=== PATIENT | male | born 1965 | race Caucasian/White ===

== ENCOUNTER 2017-07-14 21:14 | Inpatient (IN) ==
[2017-07-14] MEDS ORDERED: ONDANSETRON 4 MG/2 ML VIAL IV STA (21:39)
[2017-07-14] MEDS ORDERED: MORPHINE 2 MG/1 ML SYRINGE IV STA (21:39)
[2017-07-14] MEDS ORDERED: SODIUM CHLORIDE 0.9% 1,000 ML IV STA (21:43)
[2017-07-14] MEDS ORDERED: ONDANSETRON 4 MG/2 ML VIAL ONE (22:07)
[2017-07-14] MEDS ORDERED: MORPHINE 2 MG/1 ML SYRINGE ONE ×2 (22:07→22:08)
[2017-07-14 22:10] LABS: Basophils % 0.6 % (0.0-0.8); Eosinophils # 0.2 10*3/uL (0.0-0.87); Eosinophils % 2.5 % (0.00-10.9); Hematocrit 38.3 VOL% (42.0-52.0); Hemoglobin 13.2 GM/DL (14.0-18.0); Immature Granulocytes % 0.3 %; Immature Granulocytes Absolute 0.02 #; Lymphocytes # 1.9 10*3/uL (1.4-4.0); Lymphocytes % 28.7 % (21.2-54.2); Mean Corpuscular HGB Conc 34.5 GM/DL (32-36); Mean Corpuscular Hemoglobin 29 PG (27-34); Mean Corpuscular Volume 84.5 FL (87-102); Mean Platelet Volume 9.5 FL (9.6-12.0); Monocytes # 0.6 10*3/uL (0.11-0.8); Monocytes % 8.6 % (1.7-12.7); Neutrophils # 3.9 10*3/uL (1.4-7.4); Neutrophils % 59.3 % (38.7-73.9); Platelet Count 187 T/CUMM (130-400); Red Blood Count 4.53 MC/CUMM (3.8-5.5); Red Cell Distribution Width 13.3 % (9.3-17.3); White Blood Count 6.5 T/CUMM (4-12)
[2017-07-14 22:22] LABS: Albumin 3.6 G/DL (3.4-5.0); Bilirubin,Total 0.7 MG/DL (0.2-1.0); Calcium 8.7 MG/DL (8.5-10.1); Potassium 3.7 MMOL/L (3.5-5.1); Total Protein 6.4 G/DL (6.4-8.3)
[2017-07-14] MEDS ORDERED: HYDROmorphone 2 MG/1 ML VIAL IV STA (22:38)
[2017-07-14] MEDS ORDERED: HYDROmorphone 2 MG/1 ML VIAL ONE (22:40)
--- NOTE | 2017-07-14 22:41 | Emergency Department Note ---
Arrival - Arrival Chief Complaint: Chest Pain Stated Complaint: chest pain ED Nursing Triage Note: pt states pain is centered in his chest. pt experienced n/v, sharp stabbing pain, with no complaint of sob. pt is observed in bed cluthing lower right abdomen upon movement. Mode of Arrival: Stretcher Time Seen by Provider: 07/14/17 21:30 - History of Present Illness HPI Narrative: This is a 52-year-old white male who has no other medical problems and takes no medications who is known to have gallstones which she has been reluctant to have surgery for who has intermittent episodes of biliary colic but presents now with 4 days of increasingly worsening constant right upper quadrant pain associated with fever but no chills which is preventing him from sleeping. He presents to the emergency department asking for pain management and asking to be admitted to the hospital for cholecystectomy. His laboratory tests showed normal liver function studies normal white blood cell count a low-grade fever of 99.1 and an amylase of over 400. Allergies/Adverse Reactions: Allergies Allergy/AdvReac Type Severity Reaction Status Date / Time No Known Allergies Allergy Unverified 09/12/16 03:57 Home Medications: Home Medications Medication Instructions Recorded Confirmed Type Aspirin EC Tab 81 mg PO DAILY #30 tablet 03/23/16 Rx Carvedilol [Coreg] 6.25 mg PO BID #60 tablet 03/23/16 Rx HYDROcodone/ACETAMIN 10-325 [[place] 1 tablet PO Q4H PRN #30 tablet 03/23/16 Rx 10-325] Losartan [Cozaar] 50 mg PO DAILY #30 tablet 03/23/16 Rx HYDROcodone/ACETAMIN 10-325 [[place] 1 tablet PO Q4H PRN #20 tablet 09/12/16 Rx 10-325] Ondansetron [Ondansetron Odt] 8 mg PO Q4H PRN #10 tab.rapdis 09/12/16 Rx Tamsulosin [Flomax] 0.4 mg PO DAILY #20 capsule 09/12/16 Rx Review of System - Review of System Constitutional: Absent: fever, night sweats Eyes: Absent: redness, vision change Head/Ears/Nose/Throat: Absent: epistaxis, nasal drainage Respiratory: Absent: respiratory distress, wheezing Cardiovascular: Absent: dyspnea on exertion, orthopnea Gastrointestinal: Present: abdominal pain, nausea, hematemesis. Absent: vomiting, diarrhea Genitourinary male: Absent: hematuria, discharge Musculoskeletal: Absent: joint swelling, lower back pain, leg pain Skin: Absent: change in color, pruritus Neurological: Absent: numbness, paresthesias Psychiatric: Absent: anxiety, suicidal thoughts, homicidal thoughts Endocrine: Absent: polydipsia, polyuria Hematological/Lymphatic: Absent: easy bruising, lymphadenopathy Allergic/Immunologic: Absent: urticaria, itchy eyes Medical,Surgical,& Family Hx - Medical History Cardio: History of: Hypertension ("borderline" NO MEDS) Neurology: History of: Vertigo Genitourinary: History of: Kidney Stones - Surgical History Abdominal Surgeries: Patient denies: Abdominal Surgery Orthopedic Surgeries: Surgical HX of;: Orthopedic Surgery (L leg with radha, surgical wires in jaws) - Family History Family History: Reports;: Family Heart Disease (father), Family Hypertension, Family Stroke (mother) - Social History Smoking Status: Never smoker Frequency of Alcohol Use: None Type of Drug Use: None Exam Vital Signs: Vital Signs Temperature 99.1 F 07/14/17 21:22 Pulse Rate 50 L 07/14/17 21:22 Respiratory Rate 17 07/14/17 22:16 Blood Pressure 113/70 07/14/17 21:22 O2 Sat by Pulse Oximetry 99 07/14/17 21:22 - General Exam limited due to: ALOC - Head Head exam: Present: atraumatic, normocephalic - Eye Eye exam: Present: PERRL, EOMI - ENT ENT exam: Present: normal exam, normal oropharynx - Neck Neck exam: Present: normal inspection, full ROM - Chest Chest inspection: Present: normal inspection, symmetric chest wall rise - Respiratory Respiratory exam: Present: normal lung sounds bilaterally - Cardiovascular Cardiovascular exam: Present: regular rate, normal rhythm - Abdominal Exam Abdominal exam: Present: other (Tenderness in the right upper quadrant without guarding or rebound) - Extremities Exam Extremities exam: Present: normal inspection, full ROM - Back Exam Back exam: Present: normal inspection, full ROM - Neurological Exam Neurological exam: Present: alert, oriented X3 - Psychiatric Psychiatric exam: Present: normal affect, normal mood - Skin Skin exam: Present: warm, dry Course Course Narrative: The patient's white blood cell count is not elevated. He has a low-grade fever and an elevated lipase. The gallbladder ultrasound does not show pericolic fluid gallbladder wall thickening but there is a positive Ruiz sign. The case was discussed with Dr. Gamino who agreed to admit the patient for pain management and possible cholecystectomy therefore we will admit the patient to the hospital. Results - Labs CBC & BMP: 07/14/17 21:42 07/14/17 21:42 Disposition Clinical Impression: Biliary colic Disposition: Still a Patient Additional Instructions: The patient's white blood cell count is not elevated. He has a low-grade fever and an elevated lipase. The gallbladder ultrasound does not show pericolic fluid gallbladder wall thickening but there is a positive Ruiz sign. The case was discussed with Dr. Gamino who agreed to admit the patient for pain management and possible cholecystectomy therefore we will admit the patient to the hospital.
[2017-07-15] MEDS ORDERED: HYDROmorphone 2 MG/1 ML VIAL IV STA (01:51)
[2017-07-15] MEDS ORDERED: HYDROmorphone 2 MG/1 ML VIAL ONE ×2 (02:02→09:32)
--- NOTE | 2017-07-15 02:32 | EKG Report ---
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
[2017-07-15] MEDS ORDERED: ONDANSETRON 4 MG/2 ML VIAL ONE (04:36)
[2017-07-15] MEDS: ONDANSETRON 4 MG/2 ML VIAL IV PRN ×2 (04:50→14:19)
[2017-07-15] MEDS: HYDROmorphone 2 MG/1 ML VIAL IV PRN ×4 (04:50→19:06)
[2017-07-15] MEDS ORDERED: PIPERACILLIN/TAZOBACTAM 3,375 MG VIAL IV ONE (06:21)
[2017-07-15] MEDS ORDERED: SODIUM CHLORIDE 0.9% 100 ML IV ONE (06:21)
--- NOTE | 2017-07-15 06:26 | Ultrasound Report ---
Exam: US gallbladder Date: 07/14/2017 9:43 PM Comparison: None Indication: Right upper quadrant pain Technique:[Multiple transabdominal real-time scans were obtained of the right upper quadrant. Color-flow scans obtained. Ultrasound images were captured and stored. This exam was initially interpreted by [facility].] Findings: Multiple hyperechoic foci in the gallbladder with posterior acoustical shadowing. The wall of the gallbladder is somewhat ill-defined because of the significant shadowing. Reported positive sonographic Ruiz sign. CBD is normal in size measuring 5 mm. The liver is normal in size with no masses. Right kidney measures 104 mm in length with no hydronephrosis. 3 mm midpole and 14 mm lower pole simple appearing renal cysts. The visualized pancreas and aorta have an unremarkable appearance with color flow documented in the portal and hepatic veins. Portions of the pancreas and aortic bifurcation are obscured by bowel gas. Impression: Cholelithiasis with poor definition of the wall of the gallbladder because of the significant shadowing from the multiple stones. Reported positive sonographic Ruiz sign. Biliary scan with ejection fraction may be helpful for further evaluation. Simple appearing right renal cysts. PROCEDURE INTERPRETED AT [facility] DEPARTMENT OF RADIOLOGY Final Report Signed by: Dr. Dina Trejo
[2017-07-15] MEDS: PIPERACILLIN/TAZOBACTAM 3,375 MG in SODIUM CHLORIDE 0.9% 100 ML IV SCH ×3 (06:32→22:03)
--- NOTE | 2017-07-15 07:01 | XRay Report ---
Portable chest Date: 07/14/2017 Clinical history: Chest pain Comparison: 03/22/2016 Technique: Portable AP sitting chest Findings: The heart is minimally enlarged with calcified granulomata/nodes and minimal chronic scarring. Stable mediastinum with degenerative changes. Impression: No acute cardiopulmonary pathology identified. PROCEDURE INTERPRETED AT [facility] DEPARTMENT OF RADIOLOGY Final Report Signed by: Dr. Dina Trejo
--- NOTE | 2017-07-15 09:05 | Cardiology Consult Note ---
Assessment and Plan - Time spent with patient Time spent with patient: Greater than 30 minutes (1) Cholecystitis Status: Acute Assessment and plan: SEE PLAN OF CARE LISTED BELOW Current Visit: Yes (2) Pre-operative cardiovascular examination Status: Acute Assessment and plan: SEE PLAN OF CARE LISTED BELOW Current Visit: Yes (3) Sinus bradycardia Status: Acute Assessment and plan: SEE PLAN OF CARE LISTED BELOW Current Visit: Yes (4) Fatigue Status: Acute Assessment and plan: SEE PLAN OF CARE LISTED BELOW Current Visit: Yes (5) Abdominal pain Status: Acute Assessment and plan: SEE PLAN OF CARE LISTED BELOW Current Visit: Yes (6) Hypertension Status: Chronic Assessment and plan: SEE PLAN OF CARE LISTED BELOW Current Visit: No (7) Sleep apnea Status: Chronic Assessment and plan: SEE PLAN OF CARE LISTED BELOW Current Visit: No History of Present Illness - Data of Consult Patient: new to practice Consult date: 07/15/17 Requesting Physician: Bowen Gamino - Consult Narrative Reason for consult: pre-operative evaluation, sinus bradycardia History of present illness: RATING CLERK: (NEW) DR. REGALADO Patient is being seen in the emergency department. Mr. Livingston, 52WM, with no prior history of cardiac disease but risk factors significant for: hypertension. Presented to the ED of [facility] the evening July 14, 2017 with complaints of chest pain, nausea and vomiting. He was found to have cholecystitis and is being considered for cholecystectomy today. EKG was performed which revealed a sinus bradycardia, heart rates varying from high 30s to low 50s. Of note, home medications listed include Carvedilol however, this was discontinued sometime ago and he has been taking Amlodipine instead. Cardiology was consulted for preoperative evaluation. Patient is normally active without complaints of chest pain, heaviness, tightness or shortness of breath. He has been extremely fatigued over the past 3 months. His is present and reports that he has lost approximately 30 pounds in the past 3 months as well. He does find it difficult to eat without having extreme pain which may be contributing to his weight loss. At this time, Dr. Regalado is seen, evaluated and discussed the patient with Dr. Gamino. Patient remains at a low risk for perioperative complications during cholecystectomy. Given the patient's significant pain, these risks are not prohibitive. Obviously, avoid louann blocking agents during procedure and thereafter. We will continue to watch patient's heart rate and rhythm. This is a sinus bradycardia and not a heart block. Given the patient's significant history of fatigue, he may actually benefit from further workup and/or consideration for pacemaker. Will add free T4 and TSH this morning. Will follow along closely. ASSESSMENT/PLAN: 1. SINUS BRADYCARDIA -this does appear to be a sinus bradycardia and not a heart block. However, he has complaints of worsening fatigue over the past several months which may further define this is symptomatic bradycardia. Will continue to follow along and make additional recommendations accordingly. Avoiding louann blocking agents. 2. PRE-OPERATIVE RISK EVALUATION - low risk for perioperative complications during cholecystectomy 3. CHOLECYSTITIS - being treated by Dr. Gamino 4. HYPERTENSION - adequately controlled 5. FATIGUE - thyroid studies pending, echo pending. May be related to sinus bradycardia . CC: Bowen Gamino MD - Home Medications and Allergies Home Medications: Home Medications Medication Instructions Recorded Confirmed Type Aspirin EC Tab 81 mg PO DAILY #30 tablet 03/23/16 Rx Carvedilol [Coreg] 6.25 mg PO BID #60 tablet 03/23/16 Rx HYDROcodone/ACETAMIN 10-325 [[place] 1 tablet PO Q4H PRN #30 tablet 03/23/16 Rx 10-325] Losartan [Cozaar] 50 mg PO DAILY #30 tablet 03/23/16 Rx HYDROcodone/ACETAMIN 10-325 [[place] 1 tablet PO Q4H PRN #20 tablet 09/12/16 Rx 10-325] Ondansetron [Ondansetron Odt] 8 mg PO Q4H PRN #10 tab.rapdis 09/12/16 Rx Tamsulosin [Flomax] 0.4 mg PO DAILY #20 capsule 09/12/16 Rx Allergies/Adverse Reactions: Allergies Allergy/AdvReac Type Severity Reaction Status Date / Time No Known Allergies Allergy Unverified 09/12/16 03:57 Review of systems: REVIEW OF SYSTEMS: - Constitutional Constitutional: Present: Fatigue. Absent: syncope, anorexia, night sweats - EENT Eyes: Absent: blurry vision, loss of vision, diplopia Ears: Absent: decreased hearing, ear pain, ear discharge - Cardiovascular Cardiovascular: Present: chest pain after eating. Denies dyspnea on exertion, edema, palpitations. Absent: chest pain with deep breath, claudication, - Respiratory Respiratory: Denies: TYSON, cough. Absent: wheezing, hemoptysis, change in phlegm color - Gastrointestinal Gastrointestinal: Denies: constipation. Right upper quadrant abdominal pain, nausea. Denies hematemesis, hematochezia, melena, change in bowel habits - Genitourinary Genitourinary: Absent: difficulty urinating, dysuria, urinary hesitancy, flank pain - Musculoskeletal Musculoskeletal: Present: back pain Absent: joint swelling, muscle cramps, muscle weakness - Neurological Neurological: Present: normal gait without frequent falls. Absent: dizziness, hemiparesis - Psychiatric Psychiatric: Absent: anxiety, depression, difficulty concentrating - Endocrine Endocrine: Present: fatigue. Absent: cold intolerance, heat intolerance, polyuria, polyphagia, polydipsia - Hematologic/Lymphatic Hematologic/Lymphatic: Present: easy bruising. Absent: easy bleeding -Integumentary Integumentary: Absent: lesions, rashes, skin breakdown Medical,Surgical,& Family Hx - Medical History Cardio: History of: Hypertension ("borderline" NO MEDS) No history of: Cardiac Dysrhythmia, Congenital Heart Disease, CAD Neurology: History of: Vertigo Genitourinary: History of: Kidney Stones - Surgical History Abdominal Surgeries: Patient denies: Abdominal Surgery Orthopedic Surgeries: Surgical HX of;: Orthopedic Surgery (L leg with radha, surgical wires in jaws) - Family History Family History: Reports;: Family Heart Disease (father), Family Hypertension, Family Stroke (mother) - Social History Smoking Status: Never smoker Have you smoked in the last 12 months: No Frequency of Alcohol Use: None Type of Drug Use: None Marital Status: Lives With:: Spouse Functional capacity: independent ambulation Physical Examination Vital Signs Temp Pulse Resp BP Pulse Ox 99.1 F 50 L 17 113/70 99 07/14/17 21:22 07/14/17 21:22 07/14/17 21:22 07/14/17 21:22 07/14/17 21:22 Exam: General: [Appears well with no apparent distress.] [Pleasant and cooperative. ] [Appears comfortable.] HEENT: [PERRL, normocephalic, atraumatic. Mucous membranes moist. No jaundice noted. Conjunctiva moist and clear, sclerae anicteric] Neck: No JVD/HJR, no thyromegaly or lymphadenopathy noted. No carotid bruit appreciated Cardiac: [Slow rate and rhythm, no murmur rub or gallop is appreciated. Lungs: [Clear to auscultation without accessory muscle use to assist the respiratory pattern.] Not requiring oxygen Abdomen: Soft, bowel sounds normoactive. Tenderness to touch right upper quadrant of the abdomen. No abdominal bruit or thrill noted. No masses noted. Musculoskeletal: No fluid collection. Decreased range of motion is noted. Extremities: No clubbing, cyanosis noted. [ No edema noted.] Upper extremity pulses 2+. Lower extremity pulses 2+. Capillary refill less than 3 seconds. Skin: No unusual lesions or rashes. No skin breakdown appreciated. Neuro: Awake, alert and oriented 3. Moves all extremities well without hemiparesis or paralysis. No essential tremor is appreciated. Result/EKG - Labs CBC & BMP: 07/14/17 21:42 07/14/17 21:42 Lab Results: I have reviewed the past 24 hour labs Labs: Laboratory Results - last 24 hr 07/14/17 07/14/17 07/14/17 21:42 21:42 21:42 WBC 6.5 RBC 4.53 Hgb 13.2 L Hct 38.3 L MCV 84.5 L MCH 29 MCHC 34.5 RDW 13.3 Plt Count 187 MPV 9.5 L Neut % (Auto) 59.3 Lymph % (Auto) 28.7 [place] % (Auto) 8.6 Eos % (Auto) 2.5 Baso % (Auto) 0.6 Neut # (Auto) 3.9 Lymph # (Auto) 1.9 [place] # (Auto) 0.6 Eos # (Auto) 0.2 Baso # (Auto) 0.0 Immature Gran % 0.3 Nucleated RBC % 0.0 Immature Gran # 0.02 Nucleated RBCs # 0.00 Immature Plt Fraction 0.0 Sodium 143 Potassium 3.7 Chloride 114 H Carbon Dioxide 24 Anion Gap 8.7 BUN 17 Creatinine 0.90 GFR Calculation 116 BUN/Creatinine Ratio 18.00 Glucose 92 Calculated Osmolality 286.0 Calcium 8.7 Magnesium Total Bilirubin 0.70 AST 13 ALT 17 Alkaline Phosphatase 66 Troponin I < 0.015 Total Protein 6.4 Albumin 3.6 Globulin 2.8 Albumin/Globulin Ratio 1.2 Lipase 439.0 H 07/14/17 07/14/17 23:35 23:35 WBC RBC Hgb Hct MCV MCH MCHC RDW Plt Count MPV Neut % (Auto) Lymph % (Auto) [place] % (Auto) Eos % (Auto) Baso % (Auto) Neut # (Auto) Lymph # (Auto) [place] # (Auto) Eos # (Auto) Baso # (Auto) Immature Gran % Nucleated RBC % Immature Gran # Nucleated RBCs # Immature Plt Fraction Sodium Potassium Chloride Carbon Dioxide Anion Gap BUN Creatinine GFR Calculation BUN/Creatinine Ratio Glucose Calculated Osmolality Calcium Magnesium 2.2 Total Bilirubin AST ALT Alkaline Phosphatase Troponin I < 0.015 Total Protein Albumin Globulin Albumin/Globulin Ratio Lipase - Diagnostic Findings Procedure: Chest x-ray: report reviewed by me - EKG EKG results: interpreted by me EKG shows: bradycardia Quality Measures - VTE Contraindication to Pharmacological VTE Prophylaxis: High Risk of Bleeding
[2017-07-15] MEDS ORDERED: PANTOPRAZOLE 40 MG TABLET PO ONE (09:13)
[2017-07-15] MEDS: PANTOPRAZOLE 40 MG TABLET PO SCH (09:35)
[2017-07-15 10:11] LABS: Free T4 (Free Thyroxine) 1.25 NG/DL (0.76-1.46); Thyroid Stimulating Hormone 5.95 uIU/ml (0.358-3.74)
--- NOTE | 2017-07-15 11:03 | General Surg History&Physical ---
Assessment and Plan (1) Biliary colic Status: Acute Assessment and plan: The patient has worsening right upper quadrant abdominal pain associated with known biliary colic and cholelithiasis. We have obtained cardiology consultation for bradycardia and there are no contraindications to proceeding with surgical intervention today. The risks of the procedure were reviewed with patient including but not limited to infection, bleeding, injury to adjacent structures, the need to convert to open procedure, postoperative pain, adhesions, obstruction, need for additional procedures, wound healing complications, and comp occasions associated with anesthesia including heart attack, stroke, reactions to medications, thorax, and other unforeseeable cardiac, pulmonary and/or neurologic events. Patient and his is present expressed understanding of these risks and agree to proceed with surgical intervention today. We appreciate cardiology assistance. Current Visit: Yes History of Present Illness Chief complaint: RUQ abdominal pain History of present illness: Mr. Livingston is a 52 year old male with known cholelithiasis and history of intermittent biliary colic with pain worsening over the past 3-4 days in the right upper quadrant. Patient has been reluctant to proceed with surgical intervention in the past but states his pain is worsened and he is ready to proceed. Patient has history of hypertension currently on beta-alejandro was noted to be bradycardic in the emergency department. Cardiology consultation was requested prior to proceeding with surgery. Home Medications Medication Instructions Recorded Confirmed Type Aspirin EC Tab 81 mg PO DAILY #30 tablet 03/23/16 Rx Carvedilol [Coreg] 6.25 mg PO BID #60 tablet 03/23/16 Rx HYDROcodone/ACETAMIN 10-325 [[place] 1 tablet PO Q4H PRN #30 tablet 03/23/16 Rx 10-325] Losartan [Cozaar] 50 mg PO DAILY #30 tablet 03/23/16 Rx HYDROcodone/ACETAMIN 10-325 [[place] 1 tablet PO Q4H PRN #20 tablet 09/12/16 Rx 10-325] Ondansetron [Ondansetron Odt] 8 mg PO Q4H PRN #10 tab.rapdis 09/12/16 Rx Tamsulosin [Flomax] 0.4 mg PO DAILY #20 capsule 09/12/16 Rx Allergies Allergy/AdvReac Type Severity Reaction Status Date / Time No Known Allergies Allergy Unverified 09/12/16 03:57 Medical,Surgical,& Family Hx - Medical History Cardio: History of: Hypertension ("borderline" NO MEDS) No history of: Cardiac Dysrhythmia, Congenital Heart Disease, CAD Neurology: History of: Vertigo Genitourinary: History of: Kidney Stones - Surgical History Abdominal Surgeries: Patient denies: Abdominal Surgery Orthopedic Surgeries: Surgical HX of;: Orthopedic Surgery (L leg with radha, surgical wires in jaws) - Family History Family History: Reports;: Family Heart Disease (father), Family Hypertension, Family Stroke (mother) - Social History Smoking Status: Never smoker Frequency of Alcohol Use: None Type of Drug Use: None Exam - Constitutional Vitals: Period Temp Pulse Resp BP Sys/De Dios Pulse Ox Last 24 Hr 97.7 F-99.1 F 42-50 14-17 113-121/70-79 97-100 General appearance: no acute distress - Eye Eye exam: Absent: scleral icterus - Respiratory Respiratory exam: Present: clear to auscultation bilaterally - Cardiovascular Cardiovascular exam: Present: bradycardia - GI/Abdominal GI/Abdominal exam: Present: normal bowel sounds, Ruiz's sign, tenderness ( Right upper quadrant), soft. Absent: distended, firm - Extremities Exam Extremities exam: Absent: calf tenderness, edema - Neurological Exam Neurological exam: Present: alert, oriented X3 Speech: Present: normal - Skin Skin exam: Present: normal color - Constitutional Constitutional: Absent: chills, fever(s) - Cardiovascular Cardiovascular: Absent: chest pain at rest, chest pain with activity, dyspnea, dyspnea on exertion, orthopnea, palpitations - Respiratory Respiratory: Absent: cough, wheezing - Gastrointestinal Gastrointestinal: Present: as per HPI. Absent: hematemesis, hematochezia, melena - Genitourinary Genitourinary: Absent: dysuria, hematuria Hematologic/Lymphatic: Absent: easy bleeding, easy bruising Quality Measures - VTE Contraindication to Pharmacological VTE Prophylaxis: High Risk of Bleeding Results - Labs CBC & BMP: 07/14/17 21:42 07/14/17 21:42 Labs: Bilirubin 0.7, AST 13, ALT 17, alkaline phosphatase 66; lipase 439 - Diagnostic Findings Procedure: Ultrasound: report reviewed by me (Cholelithiasis noted; no evidence of gallbladder distention)
[2017-07-15] MEDS ORDERED: FAMOTIDINE 20 MG TABLET PO ONE (12:06)
[2017-07-15] MEDS ORDERED: LORazepam 1 MG TABLET PO ONE (12:06)
--- NOTE | 2017-07-15 18:31 | ECHO Report ---
Freddy Livingston Exam Date: 07/15/2017 12:25 Referring Physician: Technologist: Mayelin Shukla LRCASPER Age: 52 Ht (in): 70 Wt (lb): 190 Gender: M Exam Location: [facility] Echo Indications: cholecystitis, pre op clearance, ramu, fatique, abd. pain, HTN, GREGOR, biliary colic BP: 121 / 79 HR: 38 Rhythm: bradycardia Technical Quality: IMPRESSIONS Left ventricular ejection fraction is estimated at 55-60 %. Trace mitral valve regurgitation. Trace tricuspid valve regurgitation. Trace aortic valve regurgitation. MEASUREMENTS (Male / Female) Normal Values 2D ECHO LV Diastolic Diameter PLAX 4.4 cm 4.2 - 5.9 / 3.9 - 5.3 cm LV Systolic Diameter PLAX 2.7 cm LV Fractional Shortening PLAX 39.0 % IVS Diastolic Thickness 1.1 cm 0.6 - 1.0 / 0.6 - 0.9 cm LVPW Diastolic Thickness 1.1 cm 0.6 - 1.0 / 0.6 - 0.9 cm Aortic Root Diameter 2.9 cm LA Systolic Diameter LX 4.3 cm 3.0 - 4.0 / 2.7 - 3.8 cm DOPPLER TR Peak Velocity 229.0 cm/s TR Peak Gradient 21.0 mmHg FINDINGS Left Ventricle Normal left ventricular cavity size. Left ventricular ejection fraction is estimated at 55-60 %. Right Ventricle Normal right ventricular size and systolic function. Right Atrium Normal right atrial size. Left Atrium Normal left atrial size. Mitral Valve Morphologically normal mitral valve. Trace mitral valve regurgitation. Aortic Valve The aortic valve is trileaflet and has normal motion. Trace aortic valve regurgitation. Tricuspid Valve Morphologically normal tricuspid valve. Trace tricuspid valve regurgitation. Tricuspid regurgitation velocities suggest a PAP of 21.0 mmHg + RAP. Pulmonic Valve Morphologically normal pulmonic valve. Trace pulmonary valve regurgitation. Pericardium No pericardial effusion. Aorta Normal size aortic root and proximal ascending aorta. Rogelio Regalado (Electronically Signed) Final Date: 15 July 2017 18:03
[2017-07-16] MEDS: PIPERACILLIN/TAZOBACTAM 3,375 MG in SODIUM CHLORIDE 0.9% 100 ML IV SCH (05:54)
[2017-07-16 06:02] LABS: Basophils % 0.5 % (0.0-0.8); Eosinophils # 0.2 10*3/uL (0.0-0.87); Eosinophils % 2.8 % (0.00-10.9); Hematocrit 38.5 VOL% (42.0-52.0); Hemoglobin 13.4 GM/DL (14.0-18.0); Immature Granulocytes % 0.4 %; Immature Granulocytes Absolute 0.02 #; Lymphocytes # 1.3 10*3/uL (1.4-4.0); Lymphocytes % 23.2 % (21.2-54.2); Mean Corpuscular HGB Conc 34.8 GM/DL (32-36); Mean Corpuscular Hemoglobin 30 PG (27-34); Mean Corpuscular Volume 84.6 FL (87-102); Mean Platelet Volume 9.8 FL (9.6-12.0); Monocytes # 0.5 10*3/uL (0.11-0.8); Monocytes % 8.2 % (1.7-12.7); Neutrophils # 3.7 10*3/uL (1.4-7.4); Neutrophils % 64.9 % (38.7-73.9); Platelet Count 160 T/CUMM (130-400); Red Blood Count 4.55 MC/CUMM (3.8-5.5); Red Cell Distribution Width 13.6 % (9.3-17.3); White Blood Count 5.7 T/CUMM (4-12)
[2017-07-16 06:27] LABS: Calcium 8.5 MG/DL (8.5-10.1); Magnesium 2.4 MG/DL (1.8-2.4)
[2017-07-16 06:32] LABS: Risk Ratio 2.83
[2017-07-16] MEDS ORDERED: LORazepam 1 MG TABLET ONE (06:35)
[2017-07-16] MEDS ORDERED: FAMOTIDINE 20 MG TABLET ONE (06:36)
[2017-07-16] MEDS ORDERED: LIDOCAINE 1%/EPI INJ 20 ML VIAL ONE (06:36)
[2017-07-16] MEDS ORDERED: TISSUE ADHESIVE 1 EACH APPLICATOR TOP ONE (06:36)
--- NOTE | 2017-07-16 08:16 | Operative Note ---
Date of procedure: 07/16/17 Pre-op diagnosis: Acute cholecystitis Post-op diagnosis: same Procedure: Preoperative diagnosis Acute cholecystitis Postoperative diagnosis Same Procedures performed Laparoscopic cholecystectomy Findings Acute and chronic cholecystitis was seen. The critical view of safety was obtained prior to placing clips on the cystic duct and cystic artery. Complications None apparent Specimen Gallbladder Anesthesia GETA Blood loss 5 mL Indications Acute cholecystitis. The risks, benefits, and alternatives of the operation were discussed with the patient in detail, and the expected outcomes were reviewed. In particular, the risk of bowel injury, liver injury, bile duct leak and bile duct injury, as well as pancreatitis and retained or drop stones were discussed in detail. All the patient's questions were answered. She like to proceed with the operation. Description of procedure The patient was taken to the operating room and transferred to the operating table in the supine position. Pressure points were padded and SCDs were placed to bilateral lower extremities. General endotracheal anesthesia was administered. The abdomen was prepped chlorhexidine and draped sterilely. Preoperative antibiotics were administered, a timeout was performed. The abdomen was entered in a supraumbilical location of the Veress needle. The skin incision was made in the supraumbilical location with a 11 blade scalpel after local anesthetic was administered. Umbilical stalk was grasped with a penetrating towel clip. A Veress needle was used to enter the peritoneal cavity confirmed by double click technique. Aspiration was negative. Saline drop test confirmed intraperitoneal location. The abdomen was insufflated to 15 mmHg with an initial insufflation pressure of 5 mmHg. The Veress needle was removed and a 5 mm trocar was placed blindly. The towel clip was removed. Diagnostic laparoscopy was performed. There is no evidence of Veress needle or trocar injury. The patient was placed in reverse Trendelenburg and left side rolled down position. Under direct visualization, and after local anesthetic was administered, an 11 mm midepigastric trocar and 2 right subcostal 5 mm trochars were placed. The gallbladder was grasped at the fundus and infundibulum. The cystic plate peritoneum was dissected into the critical view of safety was obtained. The cystic duct and cystic artery were clipped twice initially and once laterally and divided laparoscopically with scissors between clips. Gallbladder was removed from the gallbladder fossa using hook electrocautery. The gallbladder was placed in a Endo Catch retrieval bag through the 11 mm trocar and removed through the trocar with a small amount of fascial extension. The gallbladder fossa was suction irrigated until the effluent was clear. The CO2 was released from the abdomen and the trochars were removed. The fascia was closed at the midepigastric trocar site with a [id number] 0 Vicryl suture. The skin incisions were closed with 4-0 Monocryl subcuticular suture and sterile skin glue. The patient was awakened from anesthesia and transferred to recovery. Postoperative plan Advance diet as tolerated Pain control Anesthesia: FAROOQA, local Surgeon / Physician: Bowen Gamino Estimated blood loss: minimal Specimens: other (gallbladder) Condition: stable Disposition: PACU Results - Labs CBC & BMP: 07/16/17 05:24 07/16/17 05:24 Discharge Plan - Discharge Data Disposition: Disch To Home/Self Care Condition at Discharge: Stable Discharge Diet: advance to your usual diet Activity: no lifting Hygiene: may shower Weight Bearing at Discharge: weight bear as tolerated Driving: other (Do not drive or operate heavy machinery for at least 24 hours and after you are off of narcotic pain medications.) Contact your physician if you experience:: fever over 101, Difficulty voiding, Redness or swelling, Nausea/Vomiting, Shortness of breath, Bleeding, pain uncontrolled by pain medications Wound / Dressing Care Instructions: It is okay to shower. Do not scrub the incision aggressively or submerge it under water. - Discharge Medications New HYDROcodone/ACETAMIN 7.5-325 [[place] 7.5-325] 1 tablet PO Q4H #20 tablet Continue Olmesartan/Hydrochlorothiazide [Benicar Hct 20-12.5 mg Tablet] 1 tablet PO DAILY Amlodipine Besylate 10 mg PO DAILY - Follow Up or Referral Follow Up: Bowen Gamino MD [Physician] - 2 Weeks - Forms/Instructions
--- NOTE | 2017-07-16 08:19 | EKG Report ---
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
--- NOTE | 2017-07-16 08:25 | Anesthesia Post-Op ---
Anesthesia Post OP - Post Ansesthetic Evaluation Patient seen in post op: Yes Resp: within normal limits CV: within normal limits Mental: within normal limits (pt remais sedate) Temp: within normal limits [id number]-Yu-Pfyqjeund: within normal limits Nausea and Vomiting: within normal limits Pain: within normal limits
[2017-07-16] MEDS ORDERED: SEVOFLURANE 1 UNIT/15 MINUTE INH ONE (08:26)
[2017-07-16] MEDS ORDERED: MIDAZOLAM 2 MG/2 ML VIAL ONE (08:26)
[2017-07-16] MEDS ORDERED: fentaNYL 100 MCG/2 ML VIAL ONE (08:27)
[2017-07-16] MEDS ORDERED: ACETAMINOPHEN 1,000 MG/100 ML VIAL IV ONE (08:27)
[2017-07-16] MEDS ORDERED: LACTATED RINGERS 1,000 ML IV ONE (08:27)
[2017-07-16] MEDS: HYDROmorphone 2 MG/1 ML VIAL IV PRN ×2 (09:41→13:38)
[2017-07-16 11:52] VITALS: BP 138/83
[2017-07-16] MEDS ORDERED: GLYCOPYRROLATE 0.4 MG/2 ML VIAL ONE (12:00)
[2017-07-16] MEDS ORDERED: PROPOFOL 200 MG/20 ML VIAL IV ONE (12:00)
[2017-07-16] MEDS ORDERED: ROCURONIUM 100 MG/10 ML VIAL IV ONE (12:00)
[2017-07-16] MEDS ORDERED: LIDOCAINE 1% 5 ML VIAL ONE (12:00)
[2017-07-16] MEDS ORDERED: ONDANSETRON 4 MG/2 ML VIAL ONE (12:00)
--- NOTE | 2017-07-16 12:55 | Cardiology Progress Note ---
Assessment and Plan (1) Cholecystitis Status: Acute Assessment and plan: He is doing well status post laparoscopic cholecystectomy. Current Visit: Yes (2) Abdominal pain Status: Acute Current Visit: Yes (3) Fatigue Status: Acute Assessment and plan: The patient has evidence of hypothyroidism clinically, and by lab. I am going to start him on [place] Thyroid 60 mg p.o. daily. Current Visit: Yes (4) Sinus bradycardia Status: Acute Assessment and plan: I would like to follow-up with him in 2-4 weeks. Current Visit: Yes (5) Hypertension Status: Chronic Current Visit: No (6) Sleep apnea Status: Chronic Current Visit: No (7) Hypothyroidism Status: Acute Assessment and plan: I am initiating treatment. Current Visit: Yes Cardiology - PN: Subj Interval history: The patient is doing well today. He denies any cardiac symptoms. He tolerated his laparoscopic cholecystectomy without difficulty. He may even be eligible to go home today. I discussed his case briefly today with Dr. Gamino. I think it is safe for him to go home from a cardiac standpoint. He does have mild asymptomatic sinus bradycardia. His laboratory tests show a elevated TSH level. I discussed with the patient whether he might want to try a thyroid medication to see if it will help his fatigue symptoms and thyroid labs. He wants to give this a try. Current Medications Hydromorphone HCl (Dilaudid Inj) 1 mg IV Q4H PRN PRN Reason: Pain Severe (8-10) Last Admin: 07/16/17 09:41 Dose: 1 mg Ondansetron HCl (Zofran Inj) 4 mg IV Q6H PRN PRN Reason: Nausea/Vomiting Last Admin: 07/15/17 14:19 Dose: 4 mg Pantoprazole Sodium (Protonix Tab) 40 mg PO DAILY OSIEL Last Admin: 07/15/17 09:35 Dose: 40 mg Exam (Progress Note) - Constitutional Vitals: Period Temp Pulse Resp BP Sys/De Dios Pulse Ox Last 24 Hr 96.8 F-98.0 F 40-73 16-18 113-146/71-92 95-100 Exam: General: Appears well developed, well nourished, no apparent distress HEENT: Normocephalic, atraumatic Neck: Supple Neck, Midline Trachea, No Bruit, No JVD Cardiac: Regular rhythm, bradycardia, no Murmur, no gallop, no rub Lungs: Clear to auscultation, No Wheeze, Rales, Rhonchi Neuro: Cranial Nerve 2-12 Intact, Motor Function Grossly Intact Abdomen: Status post laparoscopic cholecystectomy, benign/appropriate finding Skin: Normal color, no rash Extremities: No Clubbing, No Cyanosis, No Edema, Normal Upper Extr. Pulses Musculoskeletal: No acute abnormality noted Psychiatric: The patient does not appear to be anxious or depressed Result/EKG - Labs CBC & BMP: 07/16/17 05:24 07/16/17 05:24 Lab Results: I have reviewed the past 24 hour labs Labs: Laboratory Results - last 24 hr 07/16/17 07/16/17 07/16/17 05:24 05:24 05:24 WBC 5.7 RBC 4.55 Hgb 13.4 L Hct 38.5 L MCV 84.6 L MCH 30 MCHC 34.8 RDW 13.6 Plt Count 160 MPV 9.8 Neut % (Auto) 64.9 Lymph % (Auto) 23.2 [place] % (Auto) 8.2 Eos % (Auto) 2.8 Baso % (Auto) 0.5 Neut # (Auto) 3.7 Lymph # (Auto) 1.3 L [place] # (Auto) 0.5 Eos # (Auto) 0.2 Baso # (Auto) 0.0 Immature Gran % 0.4 Nucleated RBC % 0.0 Immature Gran # 0.02 Nucleated RBCs # 0.00 Immature Plt Fraction 0.0 Sodium 143 Potassium 4.0 Chloride 110 H Carbon Dioxide 25 Anion Gap 12.0 BUN 13 Creatinine 1.00 GFR Calculation 103 BUN/Creatinine Ratio 13.00 Glucose 97 Calculated Osmolality 284.0 Calcium 8.5 Magnesium 2.4 Triglycerides 95 Cholesterol 113 LDL Cholesterol 60.0 VLDL Cholesterol 19.0 HDL Cholesterol 40 Heart Disease Risk Ratio 2.83 - EKG EKG results: interpreted by me Quality Measures - VTE Contraindication to Pharmacological VTE Prophylaxis: High Risk of Bleeding Specialty Discharge - Follow Up or Referrals Follow up with: Bowen Gamino MD [Physician] - 07/29/17 10:00 am
[2017-07-16] MEDS: PANTOPRAZOLE 40 MG TABLET PO SCH (13:52)
[2017-07-17] MEDS ORDERED: THYROID 60 MG TABLET PO SCH (07:00)
--- NOTE | 2017-07-20 13:17 | Pathology Report from [facility] ---
[facility] ACCESSION # : [id number] PATIENT NAME : Day Livingston ORDERING DR : Bowen Gamino MD CLINICAL HX: Biliary colic and cholelithiasis POST-OP DX: Same SPECIMEN INFO: Gallbladder GROSS DESCRIPTION: Received in formalin labeled [facility] [place] is an intact gallbladder measuring 6.8 x 3.0 cm. The serosa is smooth and yellow pink. The gallbladder wall has an average thickness of 0.3 cm. The mucosa. surface is velvety and red blackwell. The lumen is filled with yellow bile with several smooth black stones noted measuring up to 3.8 x 2.2 cm. [employer] sections are submitted in one cassette. DIAGNOSIS FOR DAY [facility]: GALLBLADDER: Chronic cholecystitis. Cholelithiasis. No evidence of malignancy. COLLECTED DATE: 07/16/2017 [facility] REPORT DATE: 07/20/2017 ELECTRONICALLY SIGNED BY: Halle Davila III, M.D. 07/20/2017 - 9:57:30 MTDLino
== END 2017-07-16 14:55 | disposition home or self-care (01) | DRG 419 ==
LOC: EDUNIT# → EDBD → N.ED 21:14 → N.EDINP 22:43 → N.3E 23:09 → N.EDINP 07-15 02:09 → N.3E 07-15 02:09 → N.EDINP 07-15 11:27 → N.TELES 07-15 11:43
PROVIDERS: ADMIT Surgery; ATTEND Surgery
PROC: LAPCHOL (2017-07-16 07:05)

== ENCOUNTER 2018-03-02 09:32 | Inpatient (IN) ==
[2018-03-02 10:03] LABS: Basophils % 0.3 % (0.0-0.8); Eosinophils # 0.1 10*3/uL (0.0-0.87); Eosinophils % 0.8 % (0.00-10.9); Hemoglobin 14.5 GM/DL (14.0-18.0); Immature Granulocytes % 0.3 %; Immature Granulocytes Absolute 0.02 #; Lymphocytes # 1.2 10*3/uL (1.4-4.0); Lymphocytes % 19.7 % (21.2-54.2); Mean Corpuscular HGB Conc 35.4 GM/DL (32-36); Mean Corpuscular Hemoglobin 30 PG (27-34); Mean Corpuscular Volume 83.7 FL (87-102); Mean Platelet Volume 9.1 FL (9.6-12.0); Monocytes # 0.4 10*3/uL (0.11-0.8); Neutrophils # 4.3 10*3/uL (1.4-7.4); Neutrophils % 71.9 % (38.7-73.9); Platelet Count 216 T/CUMM (130-400); Red Cell Distribution Width 12.7 % (9.3-17.3)
[2018-03-02 10:25] LABS: Alanine Aminotransferase 52 U/L (16-61); Albumin 3.7 G/DL (3.4-5.0); Alkaline Phosphatase 136 U/L (45-117); Aspartate Amino Transferase 17 U/L (0-37); Blood Urea Nitrogen 15 MG/DL (7-18); Calcium 8.8 MG/DL (8.5-10.1); Glucose 103 MG/DL (74-106); Osmolality,Calculated 279.4 MOS/KG (273-304); Sodium 140 MMOL/L (136-145); Total Protein 7.2 G/DL (6.4-8.3); Troponin I Only < 0.015 NG/ML (0.00-0.045)
[2018-03-02] MEDS ORDERED: NITROGLYCERIN 2% OINT 1 INCH/GM PACK TOP ONE (11:26)
[2018-03-02] MEDS ORDERED: ONDANSETRON 4 MG/2 ML VIAL ONE (11:26)
[2018-03-02] MEDS ORDERED: MORPHINE 4 MG/1 ML VIAL ONE (11:27)
[2018-03-02] MEDS ORDERED: MORPHINE 4 MG/1 ML VIAL IV STA (11:27)
[2018-03-02] MEDS ORDERED: ONDANSETRON 4 MG/2 ML VIAL IV STA (11:27)
[2018-03-02] MEDS ORDERED: NITROGLYCERIN 2% OINT 1 INCH/GM PACK TOP STA (11:27)
[2018-03-02] MEDS ORDERED: ZALEPLON 5 MG CAPSULE PO PRN (13:01)
[2018-03-02] MEDS ORDERED: diphenhydrAMINE CAP 25 MG CAPSULE PO PRN (13:01)
[2018-03-02] MEDS ORDERED: ONDANSETRON 4 MG/2 ML VIAL IV PRN (13:01)
[2018-03-02] MEDS ORDERED: SODIUM CHLORIDE 0.9% 1,000 ML IV SCH ×2 (13:30→17:30)
[2018-03-02] MEDS ORDERED: NITROGLYCERIN SL 0.4 MG TABLET SL STA (13:33)
[2018-03-02] MEDS ORDERED: NITROGLYCERIN SL 0.4 MG TABLET SL ONE (13:48)
[2018-03-02 13:59] LABS: Risk Ratio 1.77; VLDL CHOLESTEROL 8.6 MG/DL
[2018-03-02] MEDS ORDERED: ENOXAPARIN 40 MG/0.4 ML SYRINGE SUBCUT SCH (14:00)
[2018-03-02] MEDS ORDERED: MORPHINE 4 MG/1 ML VIAL IV PRN (15:16)
[2018-03-02] MEDS ORDERED: DIAZEPAM 5 MG TABLET PO ONE (15:53)
[2018-03-02] MEDS ORDERED: POTASSIUM CHLORIDE RIDER 10 MEQ in PREMIX 1 EACH IV PRN (15:53)
[2018-03-02] MEDS ORDERED: MAGNESIUM SULF RIDER 2 GM in PREMIX 1 EACH IV PRN (15:53)
[2018-03-02] MEDS ORDERED: diphenhydrAMINE CAP 25 MG CAPSULE PO ONE (15:53)
[2018-03-02] MEDS ORDERED: methylPREDNISolone SOD SUC 125 MG/2 ML VIAL IV ONE (16:00)
[2018-03-02] MEDS ORDERED: NITROGLYCERIN DRIP 50 MG/250 ML BOTTLE IV ONE (16:10)
[2018-03-02] MEDS ORDERED: VERAPAMIL 5 MG/2 ML VIAL ONE (16:10)
[2018-03-02] MEDS ORDERED: MIDAZOLAM 2 MG/2 ML VIAL ONE (16:32)
[2018-03-02] MEDS ORDERED: fentaNYL 100 MCG/2 ML VIAL ONE (16:33)
[2018-03-02] MEDS ORDERED: ENOXAPARIN 30 MG/0.3 ML SYRINGE ONE (16:48)
[2018-03-02] MEDS: KETOROLAC 30 MG/1 ML VIAL IV SCH (17:48)
[2018-03-02] MEDS: DOCUSATE SODIUM 100 MG CAPSULE PO SCH (20:43)
[2018-03-02] MEDS ORDERED: ATORVASTATIN 20 MG TABLET PO SCH (21:00)
[2018-03-03] MEDS: KETOROLAC 30 MG/1 ML VIAL IV SCH ×2 (00:57→05:45)
[2018-03-03 05:33] LABS: Hematocrit 39.7 VOL% (42.0-52.0); Hemoglobin 13.6 GM/DL (14.0-18.0); Immature Granulocytes % 0.3 %; Immature Granulocytes Absolute 0.02 #; Lymphocytes # 0.5 10*3/uL (1.4-4.0); Lymphocytes % 6.8 % (21.2-54.2); Mean Corpuscular HGB Conc 34.3 GM/DL (32-36); Mean Corpuscular Hemoglobin 29 PG (27-34); Mean Corpuscular Volume 85.4 FL (87-102); Mean Platelet Volume 9.4 FL (9.6-12.0); Monocytes # 0.1 10*3/uL (0.11-0.8); Monocytes % 1.7 % (1.7-12.7); Neutrophils # 6.3 10*3/uL (1.4-7.4); Neutrophils % 91.2 % (38.7-73.9); Platelet Count 207 T/CUMM (130-400); Red Blood Count 4.65 MC/CUMM (3.8-5.5); Red Cell Distribution Width 12.4 % (9.3-17.3)
[2018-03-03 06:02] LABS: Hypochromasia 1+; Lymphocytes 7 % (20-55); Microcytosis Slight; Ovalocytes Slight; Platelet Estimate Adequate; Segmented Neutrophils 92 % (50-85); Total Cells Counted 100
[2018-03-03 06:03] LABS: Giant Platelets Few
[2018-03-03 06:26] LABS: Albumin 3.5 G/DL (3.4-5.0); Bilirubin,Total 0.4 MG/DL (0.2-1.0); Calcium 8.9 MG/DL (8.5-10.1); Osmolality,Calculated 285.4 MOS/KG (273-304); Potassium 4.1 MMOL/L (3.5-5.1); Total Protein 6.5 G/DL (6.4-8.3)
[2018-03-03 07:33] VITALS: BP 125/66
[2018-03-03] MEDS ORDERED: amLODIPine 10 MG TABLET PO SCH (09:00)
[2018-03-03] MEDS ORDERED: THYROID 60 MG TABLET PO SCH (09:00)
[2018-03-03] MEDS ORDERED: PANTOPRAZOLE 40 MG TABLET PO SCH (09:00)
[2018-03-03] MEDS ORDERED: ASPIRIN EC 81 MG TABLET PO SCH (09:00)
[2018-03-03] MEDS: DOCUSATE SODIUM 100 MG CAPSULE PO SCH (09:05)
== END 2018-03-03 12:45 | disposition home or self-care (01) | DRG 287 ==
LOC: N.ED 09:32 → N.EDINP 12:41 → N.TELES 13:35
PROC: CLCCHCL (ICD-10-PCS; 2018-03-02 16:45)